=== PATIENT | male | born 1980 | race Two or more races ===

== ENCOUNTER 2017-12-26 22:23 | Emergency (ER) | payer SELFPAY ==
--- NOTE | 2017-12-26 22:47 | EDM.PDOC ---
ED HPI GENERAL MEDICAL PROBLEM - General Chief Complaint: ENT Problem Stated Complaint: LUMB IN JAW LINE MOVING TO THROAT Time Seen by Provider: 12/26/17 22:45 Source of Information: Reports: Patient History Limitations: Reports: No Limitations - History of Present Illness INITIAL COMMENTS - FREE TEXT/NARRATIVE: few days h/o lump right throat now bigger and throat hurts. Right Neck Pain Score (Numeric/FACES): 8 - Related Data Allergies Allergy/AdvReac Type Severity Reaction Status Date / Time No Known Allergies Allergy Verified 12/26/17 22:48 Home Meds: Home Meds . [No Known Home Meds] 12/26/17 [History] ED ROS ENT - Review of Systems Review Of Systems: ROS reveals no pertinent complaints other than HPI. ED EXAM, ENT - Physical Exam Exam: See Below Exam Limited By: No Limitations General Appearance: Alert, WD/WN, No Apparent Distress Ears: Hearing Grossly Normal Mouth/Throat: Pharyngeal Erythema, Tonsillar Erythema, Tonsillar Swelling Head: Atraumatic Neck: Non-Tender, Full Range of Motion Respiratory/Chest: No Respiratory Distress Cardiovascular: Regular Rate, Rhythm GI/Abdominal: Soft, Non-Tender Neurological: Alert, Oriented, Normal Cognition, Normal Gait, No Motor/Sensory Deficits Psychiatric: Normal Affect, Normal Mood Skin: Warm, Dry, Normal Color Lymphatic: Other (cervical right>) Course - Vital Signs Last Recorded V/S: Last Vital Signs Temp 37.2 C 12/26/17 22:46 Pulse 69 12/26/17 22:46 Resp 16 12/26/17 22:46 BP 159/102 H 12/26/17 22:46 Pulse Ox 100 12/26/17 22:46 - Orders/Labs/Meds Orders: Active Orders 24 hr Category Date Time Status CULTURE STREP A CONFIRMATION [RM] Stat Lab 12/26/17 22:45 Results STREP SCRN A RAPID W CULT CONF [RM] Stat Lab 12/26/17 22:45 Results Amoxicillin [Amoxil] Med 12/26/17 23:19 Once 500 mg PO ONETIME ONE Departure - Departure Time of Disposition: 23:20 Disposition: Home, Self-Care 01 Condition: Good Clinical Impression: Tonsillitis, Cervical lymphadenitis - Discharge Information Instructions: Tonsillitis, [id number] Forms: ED Department Discharge Additional Instructions: 1) avoid solid foods and scratchy foods next 3 to 4 days 2) have popicle. jello. juice 3) take tylenol or motrin for fever 4) recheck as needed rx given; amox 250mg tid x 30 - My Orders Last 24 Hours: My Active Orders 12/26/17 22:45 CULTURE STREP A CONFIRMATION [RM] Stat STREP SCRN A RAPID W CULT CONF [] Stat 12/26/17 23:19 Amoxicillin [Amoxil] 500 mg PO ONETIME ONE - Assessment/Plan Last 24 Hours: My Active Orders 12/26/17 22:45 CULTURE STREP A CONFIRMATION [RM] Stat STREP SCRN A RAPID W CULT CONF [RM] Stat 12/26/17 23:19 Amoxicillin [Amoxil] 500 mg PO ONETIME ONE
[2017-12-26] MEDS ORDERED: Amoxicillin 500 MG Cap PO ONE (23:19)
== END 2017-12-26 23:29 | disposition home or self-care (01) ==
LOC: DL.ED 22:23
DX: J03.90 Acute tonsillitis, unspecified (principal); I88.9 Nonspecific lymphadenitis, unspecified
CPT/HCPCS: 87081; 87430; 99283; A9270